=== PATIENT | male | born 1980 | race Two or more races ===

== ENCOUNTER 2019-11-08 12:06 | Emergency (ER) | payer SELFPAY ==
[~2019-11-08] VITALS: Ht 167.6 cm; Wt 94.0 kg
[2019-11-08 12:08] VITALS: BP 154/106
--- NOTE | 2019-11-08 12:22 | NUR ---
TIM BAKER IN TO [facility].
--- NOTE | 2019-11-08 13:30 | NUR ---
pt in room at [facility] time. x ray complete. awaiting results at this time.
--- NOTE | 2019-11-08 14:04 | NUR ---
PT AND FAMILY GIVEN D/C PAPERWORK. FAMILY AWARE TO HAVE PAITNET SELF ISOLATE AWAY FROM PEOPLE NOT LIVING IN HOUSEHOLD. DISCUSSED S/S THAT WOULD REQUIRE COMING BACK TO ER.
== END 2019-11-08 14:06 | disposition home or self-care (01) ==
LOC: ED 12:26
DX: B34.9 Viral infection, unspecified (principal)
CPT/HCPCS: 71045; 93005; 99283